=== PATIENT | female | born 1960 | race Two or more races ===

== ENCOUNTER 2016-05-06 14:06 | Inpatient (IN) | payer MEDICARE, OTHER ==
[~2016-05-06] VITALS: Ht 162.6 cm; Wt 88.0 kg
[2016-05-06] MEDS ORDERED: INSU100V7 SQ (15:49)
[2016-05-06] MEDS ORDERED: OXYC15TA2 PO (15:49)
[2016-05-06] MEDS ORDERED: CARV3.122 PO (15:49)
[2016-05-06] MEDS ORDERED: INSU100V27 SQ (15:49)
[2016-05-06] MEDS ORDERED: ALPR0.5T8 PO (15:49)
[2016-05-06] MEDS ORDERED: GABA-534 PO (15:49)
[2016-05-06] MEDS ORDERED: FURO40TA5 PO (15:49)
[2016-05-06] MEDS ORDERED: METO5TAB7 PO (15:49)
[2016-05-06] MEDS ORDERED: ASPI81TA2 PO (15:49)
[2016-05-06 15:51] LABS: BASOPHILS % (AUTO) 0.2 % (0.0-2.0); DIFF TOTAL % 100 %; EOSINOPHILS # (AUTO) 0.3 /CMM (0.0-0.7); HEMATOCRIT 32 % (33-45); HEMOGLOBIN 10.6 g/dL (11.5-14.8); LYMPHOCYTES % (AUTO) 9.6 % (20.0-44.0); MEAN CORPUSCULAR HEMOGLOBIN 29 PG (26.0-33.0); MEAN CORPUSCULAR HGB CONC 33 g/dl (31.0-36.0); MEAN CORPUSCULAR VOLUME 86 fL (82-100); MONOCYTES # (AUTO) 0.8 /CMM (0.1-1.30); MONOCYTES % (AUTO) 7.6 % (2.0-12.0); NEUTROPHILS % (AUTO) 79.6 % (43.0-81.0); PLATELET COUNT (AUTO) 336 /CMM (150-450); RED BLOOD CELL COUNT(AUTO) 3.69 MIL/uL (4.0-5.2)
[2016-05-06 16:14] LABS: CALCIUM, SERUM 8.6 mg/dL (8.5-10.1); CREATININE 2.4 mg/dL (0.6-1.3); POTASSIUM 3.9 mmol/L (3.5-5.1)
[2016-05-06 16:16] LABS: PROTHROMBIN TIME 10.8 SECS (9.5-12.7)
[2016-05-06 17:00] VITALS: BP 144/71
[2016-05-06 17:15] VITALS: BP 144/71
[2016-05-06] MEDS ORDERED: ONDANSETRON HCL/PF 4 MG/2 ML VIAL IVP PRN (19:00)
[2016-05-06] MEDS ORDERED: ZOLPIDEM TARTRATE 5 MG TABLET PO PRN (19:00)
[2016-05-06] MEDS ORDERED: ACETAMINOPHEN 325 MG TABLET PO PRN (19:00)
[2016-05-06 20:00] VITALS: BP 122/64
[2016-05-06] MEDS: oxyCODONE IR immediate release 5 MG CAPSULE PO PRN (20:01)
[2016-05-06] MEDS ORDERED: MORPHINE SULFATE INJ 2 MG/ML DISP.SYRIN ONE (23:28)
[2016-05-07] MEDS ORDERED: oxyCODONE IR immediate release 5 MG CAPSULE ONE (06:34)
[2016-05-07] MEDS: oxyCODONE IR immediate release 5 MG CAPSULE PO PRN ×3 (06:42→20:47)
[2016-05-07 07:01] LABS: ALBUMIN 3.3 g/dL (3.4-5.0); BILIRUBIN,TOTAL 0.4 mg/dL (0.2-1.0); CALCIUM, SERUM 8.2 mg/dL (8.5-10.1); CREATININE 2.3 mg/dL (0.6-1.3); PHOSPHORUS 4.5 mg/dL (2.5-4.9); TOTAL PROTEIN, SERUM 7.2 g/dL (6.4-8.2)
[2016-05-07 07:02] LABS: BASOPHILS % (AUTO) 0.2 % (0.0-2.0); DIFF TOTAL % 100 %; EOSINOPHILS # (AUTO) 0.3 /CMM (0.0-0.7); EOSINOPHILS % (AUTO) 3.4 % (0.0-6.0); HEMATOCRIT 30 % (33-45); HEMOGLOBIN 9.9 g/dL (11.5-14.8); LYMPHOCYTES # (AUTO) 1.4 /CMM (0.8-4.8); LYMPHOCYTES % (AUTO) 16.4 % (20.0-44.0); MEAN CORPUSCULAR HEMOGLOBIN 29 PG (26.0-33.0); MEAN CORPUSCULAR HGB CONC 33 g/dl (31.0-36.0); MEAN CORPUSCULAR VOLUME 87 fL (82-100); MONOCYTES # (AUTO) 0.9 /CMM (0.1-1.30); MONOCYTES % (AUTO) 10.1 % (2.0-12.0); NEUTROPHILS % (AUTO) 69.9 % (43.0-81.0); PLATELET COUNT (AUTO) 263 /CMM (150-450); RED BLOOD CELL COUNT(AUTO) 3.45 MIL/uL (4.0-5.2); WHITE BLOOD COUNT (AUTO) 8.6 K/uL (4.3-11.0)
[2016-05-07 08:00] VITALS: BP 142/63
[2016-05-07 08:34] VITALS: BP 142/63
[2016-05-07] MEDS: METOLAZONE 2.5 MG TABLET PO SCH (11:40)
[2016-05-07] MEDS: CARVEDILOL 3.125 MG TABLET PO SCH ×2 (11:41→20:46)
[2016-05-07] MEDS: FUROSEMIDE 40 MG TABLET PO SCH ×2 (11:41→16:38)
[2016-05-07] MEDS ORDERED: DEXTROSE 50%-WATER 50 ML DISP.SYRIN IV PRN (13:00)
[2016-05-07 16:00] VITALS: BP 134/68
[2016-05-07] MEDS: INSULIN REGULAR, HUMAN 100 UNIT/ML 3 ML VIAL SQ PRN (17:10)
[2016-05-07] MEDS: BLOOD SUGAR DIAGNOSTIC 1 EACH STRIP IN SCH ×2 (17:10→21:00)
[2016-05-07] MEDS ORDERED: BLOOD SUGAR DIAGNOSTIC 1 EACH STRIP IN SCH (17:30)
[2016-05-07 20:00] VITALS: BP 144/67
[2016-05-08] MEDS ORDERED: MORPHINE SULFATE INJ 2 MG/ML DISP.SYRIN IV PRN (06:30)
[2016-05-08] MEDS ORDERED: HYDROMORPHONE 1 MG/1 ML DISP.SYRIN IV PRN (06:45)
[2016-05-08] MEDS ORDERED: HYDROMORPHONE 1 MG/1 ML DISP.SYRIN ONE (06:49)
[2016-05-08 06:59] LABS: BASOPHILS % (AUTO) 0.1 % (0.0-2.0); DIFF TOTAL % 100 %; EOSINOPHILS # (AUTO) 0.3 /CMM (0.0-0.7); EOSINOPHILS % (AUTO) 3.4 % (0.0-6.0); HEMATOCRIT 30 % (33-45); HEMOGLOBIN 10.1 g/dL (11.5-14.8); LYMPHOCYTES # (AUTO) 1.4 /CMM (0.8-4.8); LYMPHOCYTES % (AUTO) 17.3 % (20.0-44.0); MEAN CORPUSCULAR HEMOGLOBIN 29 PG (26.0-33.0); MEAN CORPUSCULAR HGB CONC 33 g/dl (31.0-36.0); MEAN CORPUSCULAR VOLUME 87 fL (82-100); MONOCYTES # (AUTO) 0.7 /CMM (0.1-1.30); MONOCYTES % (AUTO) 8.6 % (2.0-12.0); NEUTROPHILS # (AUTO) 5.9 /CMM (1.8-8.9); NEUTROPHILS % (AUTO) 70.6 % (43.0-81.0); PLATELET COUNT (AUTO) 323 /CMM (150-450); RED BLOOD CELL COUNT(AUTO) 3.49 MIL/uL (4.0-5.2); WHITE BLOOD COUNT (AUTO) 8.4 K/uL (4.3-11.0)
[2016-05-08] MEDS: BLOOD SUGAR DIAGNOSTIC 1 EACH STRIP IN SCH ×4 (07:15→22:18)
[2016-05-08 07:22] LABS: IRON, SERUM 67 ug/dl (50-175); PERCENT SATURATION 25 % (14-33); TOTAL IRON BINDING CAPACITY 267 ug/dl (250-450)
[2016-05-08 07:39] LABS: CALCIUM, SERUM 8.9 mg/dL (8.5-10.1); CREATININE 2.2 mg/dL (0.6-1.3); PHOSPHORUS 4.6 mg/dL (2.5-4.9); POTASSIUM 3.8 mmol/L (3.5-5.1)
[2016-05-08 08:00] VITALS: BP 125/63
[2016-05-08] MEDS: METOLAZONE 2.5 MG TABLET PO SCH (08:12)
[2016-05-08] MEDS: FUROSEMIDE 40 MG TABLET PO SCH ×2 (08:12→17:00)
[2016-05-08] MEDS: CARVEDILOL 3.125 MG TABLET PO SCH ×2 (08:12→21:49)
[2016-05-08] MEDS ORDERED: BUPIVACAINE MPF 0.5% W/EPI INJ 30 ML VIAL ONE ×2 (09:54→11:48)
[2016-05-08] MEDS ORDERED: FENTANYL PF 100MCG/2ML AMPUL ONE ×3 (11:47→17:46)
[2016-05-08] MEDS ORDERED: BLOOD IV SET 1 EA INFUS.SET MC ONE (14:52)
[2016-05-08] MEDS ORDERED: ATRACURIUM 100MG/10 ML MDV IV ONE (15:25)
[2016-05-08] MEDS ORDERED: GELATIN SPONGE,ABSORBABLE 1 EA SPONGE TP ONE (16:20)
[2016-05-08] MEDS ORDERED: NALOXONE HCL 0.4 MG/ML AMPUL IV PRN (17:00)
[2016-05-08] MEDS ORDERED: MORPHINE SULFATE INJ 2 MG/ML DISP.SYRIN IM PRN (17:00)
[2016-05-08] MEDS ORDERED: SET PCA INFUSE SET 1 EA INFUS.SET MC ONE (17:04)
[2016-05-08] MEDS ORDERED: HYDROMORPHONE INJ 2 MG/ML DISP.SYRIN ONE (17:36)
[2016-05-08 18:16] LABS: BASOPHILS % (AUTO) 0.1 % (0.0-2.0); DIFF TOTAL % 100 %; EOSINOPHILS # (AUTO) 0.1 /CMM (0.0-0.7); EOSINOPHILS % (AUTO) 0.8 % (0.0-6.0); HEMATOCRIT 32 % (33-45); HEMOGLOBIN 10.6 g/dL (11.5-14.8); LYMPHOCYTES # (AUTO) 1.2 /CMM (0.8-4.8); LYMPHOCYTES % (AUTO) 10.2 % (20.0-44.0); MEAN CORPUSCULAR HEMOGLOBIN 29 PG (26.0-33.0); MEAN CORPUSCULAR HGB CONC 33 g/dl (31.0-36.0); MEAN CORPUSCULAR VOLUME 87 fL (82-100); MONOCYTES # (AUTO) 0.7 /CMM (0.1-1.30); MONOCYTES % (AUTO) 6.1 % (2.0-12.0); NEUTROPHILS # (AUTO) 9.8 /CMM (1.8-8.9); NEUTROPHILS % (AUTO) 82.8 % (43.0-81.0); PLATELET COUNT (AUTO) 297 /CMM (150-450); RED BLOOD CELL COUNT(AUTO) 3.68 MIL/uL (4.0-5.2); WHITE BLOOD COUNT (AUTO) 11.8 K/uL (4.3-11.0)
[2016-05-08 18:30] VITALS: BP 147/68
[2016-05-08] MEDS: MORPHINE SULFATE 30 MG in IV NS 0.9% 28 ML, PCA TOTAL VOLUME 1 BAG IV PRN ×3 (18:38)
[2016-05-08 18:45] VITALS: BP 147/68
[2016-05-08 19:00] VITALS: BP 135/49
[2016-05-08] MEDS: HYDROMORPHONE 1 MG/1 ML DISP.SYRIN IV PRN ×4 (19:12→23:04)
[2016-05-08 21:02] VITALS: BP 130/54
[2016-05-08] MEDS: INSULIN REGULAR, HUMAN 100 UNIT/ML 3 ML VIAL SQ PRN (21:58)
[2016-05-08] MEDS ORDERED: IV SET PRIMARY PUMP SET 1 EA INFUS.SET MC ONE (23:00)
[2016-05-09] MEDS: MORPHINE SULFATE 30 MG in IV NS 0.9% 28 ML, PCA TOTAL VOLUME 1 BAG IV PRN ×6 (00:02→09:03)
[2016-05-09] MEDS: HYDROMORPHONE 1 MG/1 ML DISP.SYRIN IV PRN ×7 (00:14→09:43)
[2016-05-09] MEDS ORDERED: IV NS 0.9% 250 ML IV ONE (04:17)
[2016-05-09 06:56] LABS: DIFF TOTAL % 100 %; EOSINOPHILS # (AUTO) 0.1 /CMM (0.0-0.7); EOSINOPHILS % (AUTO) 0.6 % (0.0-6.0); HEMATOCRIT 28 % (33-45); HEMOGLOBIN 9.2 g/dL (11.5-14.8); LYMPHOCYTES # (AUTO) 0.9 /CMM (0.8-4.8); LYMPHOCYTES % (AUTO) 7.8 % (20.0-44.0); MEAN CORPUSCULAR HEMOGLOBIN 29 PG (26.0-33.0); MEAN CORPUSCULAR HGB CONC 33 g/dl (31.0-36.0); MEAN CORPUSCULAR VOLUME 88 fL (82-100); MONOCYTES # (AUTO) 1.2 /CMM (0.1-1.30); MONOCYTES % (AUTO) 10.2 % (2.0-12.0); NEUTROPHILS # (AUTO) 9.8 /CMM (1.8-8.9); NEUTROPHILS % (AUTO) 81.4 % (43.0-81.0); PLATELET COUNT (AUTO) 260 /CMM (150-450); RED BLOOD CELL COUNT(AUTO) 3.16 MIL/uL (4.0-5.2)
[2016-05-09] MEDS: BLOOD SUGAR DIAGNOSTIC 1 EACH STRIP IN SCH ×4 (07:30→21:31)
[2016-05-09 07:34] LABS: CALCIUM, SERUM 7.8 mg/dL (8.5-10.1); CREATININE 2.1 mg/dL (0.6-1.3); PHOSPHORUS 3.8 mg/dL (2.5-4.9); POTASSIUM 4.4 mmol/L (3.5-5.1)
[2016-05-09 08:00] VITALS: BP 112/58
[2016-05-09] MEDS: FUROSEMIDE 40 MG TABLET PO SCH ×2 (08:26→17:00)
[2016-05-09] MEDS: CARVEDILOL 3.125 MG TABLET PO SCH ×2 (08:26→21:34)
[2016-05-09] MEDS: METOLAZONE 2.5 MG TABLET PO SCH (08:26)
[2016-05-09 10:00] VITALS: BP 112/58
[2016-05-09] MEDS ORDERED: HYDROMORPHONE MDV 2 MG in IV D5W 50 ML IV PRN (10:00)
[2016-05-09] MEDS: oxyCODONE IR immediate release 5 MG CAPSULE PO PRN ×2 (10:55→19:42)
[2016-05-09] MEDS ORDERED: HYDROMORPHONE INJ 2 MG/ML DISP.SYRIN IV ONE (11:00)
[2016-05-09] MEDS: INSULIN REGULAR, HUMAN 100 UNIT/ML 3 ML VIAL SQ PRN ×3 (13:41→21:32)
[2016-05-09 16:00] VITALS: BP 165/75
[2016-05-09] MEDS: HYDROMORPHONE MDV 2 MG in IV D5W 50 ML IV PRN ×3 (16:12→21:25)
[2016-05-09] MEDS ORDERED: CEFAZOLIN 2 GM in IV NS 0.9% 50 ML IV SCH (21:00)
[2016-05-09 21:28] VITALS: BP 125/67
[2016-05-09] MEDS: CEFAZOLIN 2 GM in IV D5W 50 ML IV SCH (22:11)
[2016-05-09] MEDS ORDERED: IV SET PRIMARY PUMP SET 1 EA INFUS.SET MC ONE (22:11)
[2016-05-10] MEDS: HYDROMORPHONE MDV 2 MG in IV D5W 50 ML IV PRN ×7 (00:24→20:18)
[2016-05-10] MEDS: CEFAZOLIN 2 GM in IV D5W 50 ML IV SCH ×2 (04:55→13:58)
[2016-05-10] MEDS: INSULIN REGULAR, HUMAN 100 UNIT/ML 3 ML VIAL SQ PRN ×4 (05:56→21:21)
[2016-05-10] MEDS: BLOOD SUGAR DIAGNOSTIC 1 EACH STRIP IN SCH ×4 (05:57→21:17)
[2016-05-10 06:42] LABS: BASOPHILS % (AUTO) 0.1 % (0.0-2.0); DIFF TOTAL % 100 %; EOSINOPHILS # (AUTO) 0.1 /CMM (0.0-0.7); EOSINOPHILS % (AUTO) 0.6 % (0.0-6.0); HEMATOCRIT 28 % (33-45); HEMOGLOBIN 9.3 g/dL (11.5-14.8); LYMPHOCYTES # (AUTO) 0.7 /CMM (0.8-4.8); LYMPHOCYTES % (AUTO) 4.9 % (20.0-44.0); MEAN CORPUSCULAR HEMOGLOBIN 29 PG (26.0-33.0); MEAN CORPUSCULAR HGB CONC 33 g/dl (31.0-36.0); MEAN CORPUSCULAR VOLUME 87 fL (82-100); MONOCYTES # (AUTO) 1.3 /CMM (0.1-1.30); MONOCYTES % (AUTO) 8.9 % (2.0-12.0); NEUTROPHILS # (AUTO) 12.4 /CMM (1.8-8.9); NEUTROPHILS % (AUTO) 85.5 % (43.0-81.0); PLATELET COUNT (AUTO) 256 /CMM (150-450); RED BLOOD CELL COUNT(AUTO) 3.23 MIL/uL (4.0-5.2); WHITE BLOOD COUNT (AUTO) 14.5 K/uL (4.3-11.0)
[2016-05-10 06:58] LABS: CALCIUM, SERUM 8.5 mg/dL (8.5-10.1); CREATININE 2.2 mg/dL (0.6-1.3); PHOSPHORUS 3.6 mg/dL (2.5-4.9); POTASSIUM 4.2 mmol/L (3.5-5.1)
[2016-05-10 08:00] VITALS: BP 135/64
[2016-05-10] MEDS: METOLAZONE 2.5 MG TABLET PO SCH (08:20)
[2016-05-10] MEDS: FUROSEMIDE 40 MG TABLET PO SCH ×2 (08:20→16:34)
[2016-05-10] MEDS: oxyCODONE IR immediate release 5 MG CAPSULE PO PRN (08:20)
[2016-05-10] MEDS: CARVEDILOL 3.125 MG TABLET PO SCH ×2 (08:20→21:13)
[2016-05-10] MEDS ORDERED: SET PCA INFUSE SET 1 EA INFUS.SET MC ONE (09:44)
[2016-05-10] MEDS ORDERED: IV SET PRIMARY PUMP SET 1 EA INFUS.SET MC ONE (09:50)
[2016-05-10] MEDS ORDERED: IV NS 0.9% 250 ML IV ONE (09:50)
[2016-05-10] MEDS ORDERED: ENOXAPARIN SODIUM 40 MG/0.4 ML DISP.SYRIN SQ SCH (12:00)
[2016-05-10] MEDS: ENOXAPARIN SODIUM 30 MG/0.3 ML DISP.SYRIN SQ SCH (13:10)
[2016-05-10] MEDS ORDERED: SECONDARY IV SET 1 EA INFUS.SET MC ONE (13:57)
[2016-05-10 16:00] VITALS: BP 118/56
[2016-05-10] MEDS ORDERED: GABAPENTIN 300 MG CAPSULE PO SCH (17:00)
[2016-05-10 20:00] VITALS: BP 122/56
[2016-05-11] MEDS: HYDROMORPHONE MDV 2 MG in IV D5W 50 ML IV PRN ×5 (01:34→21:14)
[2016-05-11 05:57] LABS: BASOPHILS % (AUTO) 0.3 % (0.0-2.0); DIFF TOTAL % 100 %; EOSINOPHILS # (AUTO) 0.2 /CMM (0.0-0.7); EOSINOPHILS % (AUTO) 1.3 % (0.0-6.0); HEMATOCRIT 27 % (33-45); HEMOGLOBIN 8.9 g/dL (11.5-14.8); LYMPHOCYTES # (AUTO) 1.2 /CMM (0.8-4.8); MEAN CORPUSCULAR HEMOGLOBIN 29 PG (26.0-33.0); MEAN CORPUSCULAR HGB CONC 34 g/dl (31.0-36.0); MEAN CORPUSCULAR VOLUME 88 fL (82-100); MONOCYTES # (AUTO) 1.3 /CMM (0.1-1.30); MONOCYTES % (AUTO) 8.7 % (2.0-12.0); NEUTROPHILS # (AUTO) 11.8 /CMM (1.8-8.9); NEUTROPHILS % (AUTO) 81.7 % (43.0-81.0); PLATELET COUNT (AUTO) 277 /CMM (150-450); RED BLOOD CELL COUNT(AUTO) 3.04 MIL/uL (4.0-5.2); WHITE BLOOD COUNT (AUTO) 14.5 K/uL (4.3-11.0)
[2016-05-11 06:13] LABS: CALCIUM, SERUM 8.4 mg/dL (8.5-10.1); CREATININE 2.6 mg/dL (0.6-1.3); PHOSPHORUS 3.5 mg/dL (2.5-4.9); POTASSIUM 4.1 mmol/L (3.5-5.1)
[2016-05-11] MEDS ORDERED: IV NS 0.9% 1,000 ML ONE (06:37)
[2016-05-11] MEDS: BLOOD SUGAR DIAGNOSTIC 1 EACH STRIP IN SCH ×4 (06:53→21:52)
[2016-05-11] MEDS: INSULIN REGULAR, HUMAN 100 UNIT/ML 3 ML VIAL SQ PRN ×4 (06:56→21:57)
[2016-05-11] MEDS ORDERED: IV NS 0.9% 1,000 ML IV PRN (07:00)
[2016-05-11 07:36] VITALS: BP 102/50
[2016-05-11 08:00] VITALS: BP 102/50
[2016-05-11] MEDS: GABAPENTIN 300 MG CAPSULE PO SCH (08:20)
[2016-05-11] MEDS: FUROSEMIDE 40 MG TABLET PO SCH (08:21)
[2016-05-11] MEDS: CARVEDILOL 3.125 MG TABLET PO SCH ×2 (08:21→21:18)
[2016-05-11] MEDS: METOLAZONE 2.5 MG TABLET PO SCH (08:22)
[2016-05-11] MEDS: ENOXAPARIN SODIUM 30 MG/0.3 ML DISP.SYRIN SQ SCH (08:26)
[2016-05-11] MEDS: oxyCODONE IR immediate release 5 MG CAPSULE PO PRN (13:01)
[2016-05-11 15:38] VITALS: BP 153/71
[2016-05-11 16:00] VITALS: BP 153/71
[2016-05-11 20:00] VITALS: BP 126/63
[2016-05-11] MEDS ORDERED: SECONDARY IV SET 1 EA INFUS.SET MC ONE (21:07)
[2016-05-11 22:40] LABS: ADD UA MICROSCOPIC YES; KETONES,URINE NEGATIVE (NEGATIVE); LEUKOCYTE ESTERASE ,URINE 2+ (NEGATIVE); PH,URINE 5.5 (5.0-8.0)
[2016-05-11 23:24] LABS: ADD URINE CULTURE YES; RBC,URINE 21-50 /HPF (0-2); WBC,URINE 51-80 /HPF (0-3)
[2016-05-12] MEDS: HYDROMORPHONE MDV 2 MG in IV D5W 50 ML IV PRN (02:20)
[2016-05-12] MEDS ORDERED: Oxycodone Hcl PO (06:11)
[2016-05-12 06:25] LABS: BASOPHILS % (AUTO) 0.4 % (0.0-2.0); EOSINOPHILS # (AUTO) 0.3 /CMM (0.0-0.7); EOSINOPHILS % (AUTO) 2.3 % (0.0-6.0); HEMATOCRIT 24 % (33-45); LYMPHOCYTES % (AUTO) 8.4 % (20.0-44.0); MEAN CORPUSCULAR HEMOGLOBIN 30 PG (26.0-33.0); MEAN CORPUSCULAR HGB CONC 34 g/dl (31.0-36.0); MEAN CORPUSCULAR VOLUME 87 fL (82-100); MONOCYTES % (AUTO) 7.8 % (2.0-12.0); NEUTROPHILS % (AUTO) 81.1 % (43.0-81.0); PLATELET COUNT (AUTO) 264 /CMM (150-450); RED BLOOD CELL COUNT(AUTO) 2.71 MIL/uL (4.0-5.2); WHITE BLOOD COUNT (AUTO) 12.3 K/uL (4.3-11.0)
[2016-05-12] MEDS: BLOOD SUGAR DIAGNOSTIC 1 EACH STRIP IN SCH ×3 (06:51→18:00)
[2016-05-12] MEDS: INSULIN REGULAR, HUMAN 100 UNIT/ML 3 ML VIAL SQ PRN ×2 (06:51→11:41)
[2016-05-12 07:00] LABS: CALCIUM, SERUM 8.2 mg/dL (8.5-10.1); CREATININE 2.5 mg/dL (0.6-1.3); PHOSPHORUS 3.8 mg/dL (2.5-4.9); POTASSIUM 4.1 mmol/L (3.5-5.1)
[2016-05-12 07:55] LABS: DIFF TOTAL % 100 %
[2016-05-12 08:00] VITALS: BP 97/58
[2016-05-12] MEDS: CARVEDILOL 3.125 MG TABLET PO SCH (08:13)
[2016-05-12] MEDS: oxyCODONE IR immediate release 5 MG CAPSULE PO PRN ×2 (08:13→18:00)
[2016-05-12] MEDS: GABAPENTIN 300 MG CAPSULE PO SCH (08:14)
[2016-05-12] MEDS: ENOXAPARIN SODIUM 30 MG/0.3 ML DISP.SYRIN SQ SCH ×2 (08:15→08:34)
[2016-05-12 16:00] VITALS: BP_SYST 112; BP_DIAS 53; BP_DIAS 70
[2016-05-12 20:00] VITALS: BP 120/66
[2016-05-12 20:26] VITALS: BP 120/66
== END 2016-05-12 21:10 | DRG 463 ==
LOC: ER 14:13 → MEDSG2 16:59
PROVIDERS: ADMIT Nurse Practitioner Acute Care; ATTEND Nurse Practitioner Acute Care
PROC: 0HRMXJZ Replacement of Right Foot Skin with Synthetic Substitute, External Approach (ICD-10-PCS; 2016-05-08)
PROC: 0L8S0ZZ Division of Right Ankle Tendon, Open Approach (ICD-10-PCS; 2016-05-08)
PROC: 0HRMX74 Replacement of Right Foot Skin with Autologous Tissue Substitute, Partial Thickness, External Approach (ICD-10-PCS; 2016-05-08)
PROC: 30233N1 Transfusion of Nonautologous Red Blood Cells into Peripheral Vein, Percutaneous Approach (ICD-10-PCS; 2016-05-08)
PROC: 0SGF0ZZ (ICD-10-PCS; principal; 2016-05-08 11:23)
PROC: 0KBV0ZZ Excision of Right Foot Muscle, Open Approach (ICD-10-PCS; 2016-05-08 11:23)
DX: M21.171 Varus deformity, not elsewhere classified, right ankle (principal); N17.0 Acute kidney failure with tubular necrosis; I13.0 Hypertensive heart and chronic kidney disease with heart failure and stage 1 through stage 4 chronic kidney disease, or unspecified chronic kidney disease; E11.621 Type 2 diabetes mellitus with foot ulcer; D63.8 Anemia in other chronic diseases classified elsewhere; E11.22 Type 2 diabetes mellitus with diabetic chronic kidney disease; N18.9 Chronic kidney disease, unspecified; I25.10 Atherosclerotic heart disease of native coronary artery without angina pectoris; Z86.73 Personal history of transient ischemic attack (TIA), and cerebral infarction without residual deficits; Z79.4 Long term (current) use of insulin; Z95.1 Presence of aortocoronary bypass graft; L97.519 Non-pressure chronic ulcer of other part of right foot with unspecified severity; M21.541 Acquired clubfoot, right foot; M21.371 Foot drop, right foot; E83.9 Disorder of mineral metabolism, unspecified; E11.40 Type 2 diabetes mellitus with diabetic neuropathy, unspecified; I50.9 Heart failure, unspecified
CPT/HCPCS: 36415; 71010-TC; 73600-TC; 80048-TC; 80053-TC; 80061-TC; 81000-TC; 82728-TC; 82962-TC; 83540-TC; 83735-TC; 84100-TC; 85025-TC; 85730-TC; 86850-TC; 86901; 86921-TC; 87070-TC; 87081-TC; 87086-TC; 87186-TC; 93307-TC; 97001-TC; 97110-TC; 97530-TC; A4216; A4606; A6402; J0690; J1170; J1650; J1815; J2250; J2270; J2405; J3010; J3490; J7030; J7050; J7060; P9016-BL; Z7610